=== PATIENT | male | born 1990 | race Hispanic/Latino ===

== ENCOUNTER 2022-04-12 16:53 | Emergency (ER) | payer MEDICAID, OTHER ==
[~2022-04-12] VITALS: Ht 175.3 cm; Wt 86.2 kg
[2022-04-12] MEDS ORDERED: DEXAMETHASONE SOD PHOSPHATE 4 MG/ML 1ML VIAL IM ONE (21:30)
[2022-04-12] MEDS ORDERED: KETOROLAC 60 MG VIAL (30MG/ML) IM ONE (21:30)
[2022-04-12] MEDS ORDERED: CYCL5TAB PO (22:48)
[2022-04-12] MEDS ORDERED: IBUP-2070 PO (22:48)
[2022-04-12] MEDS ORDERED: METH4TAB3 PO (22:48)
[2022-04-12 23:23] VITALS: BP 141/90
== END 2022-04-12 23:29 | disposition home or self-care (01) ==
LOC: EDH 16:53
DX: M54.6 Pain in thoracic spine (principal); N63.0 Unspecified lump in unspecified breast
CPT/HCPCS: 99284; 73030; 72070; 96372 ×2; J1100; J1885